=== PATIENT | female | born 2005 | race Caucasian/White ===

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

== ENCOUNTER 2024-05-20 16:24 | Emergency (ER) | payer MEDICAID ==
--- NOTE | 2024-05-20 16:48 | ERPHSYRPT ---
- History of Present Illness Time Seen by Provider: 05/20/24 16:46 Source: patient Exam Limitations: no limitations Physician History: For about 3 days patient's had generalized bodyaches and a sore throat. She had temperature 99.1 here but she taken Tylenol earlier. She denies having a fever. She does not have any chills. Basically sore throat and bodyaches are all she has. She has not done any testing. She does not have a rash. She has no respiratory symptoms at this time. She does not have any nausea vomiting or abdominal symptoms. Nothing makes symptoms better or worse. Allergies/Adverse Reactions: No Known Drug Allergies Allergy (Unverified 05/20/24 16:45) - Review of Systems Constitutional: No Symptoms Eyes: No Symptoms Ears, Nose, & Throat: Throat Pain Respiratory: No Symptoms Cardiac: No Symptoms Abdominal/Gastrointestinal: No Symptoms Genitourinary Symptoms: No Symptoms Musculoskeletal: No Symptoms Skin: No Symptoms - Past Medical History Pertinent Past Medical History: No Neurological History: No Pertinent History ENT History: No Pertinent History Cardiac History: No Pertinent History Respiratory History: No Pertinent History Endocrine Medical History: No Pertinent History Musculoskeletal History: No Pertinent History GI Medical History: No Pertinent History History: No Pertinent History Psycho-Social History: No Pertinent History Female Reproductive Disorders: No Pertinent History - Past Surgical History Past Surgical History: No Neuro Surgical History: No Pertinent History Cardiac: No Pertinent History Respiratory: No Pertinent History Gastrointestinal: No Pertinent History Musculoskeletal: No Pertinent History - Social History Smoking Status: Never smoker Drug Use: none - Nursing Vital Signs Nursing Vital Signs: Initial Vital Signs Temperature 99.1 F 05/20/24 16:39 Pulse Rate 118 H 05/20/24 16:39 Respiratory Rate 17 05/20/24 16:39 Blood Pressure 142/91 05/20/24 16:39 O2 Sat by Pulse Oximetry 99 05/20/24 16:39 Pain Scale Pain Intensity [Generalized] 5 Pain Intensity 5 - Physical Exam General Appearance: no apparent distress Eye Exam: bilateral eye: normal inspection, PERRL, EOMI Ear Exam: bilateral ear: auricle normal, canal normal, TM normal Nasal Exam: normal inspection Throat Exam: tonsillar exudate (Mild exudate and some erythema. There is not any swelling or unilateral signs or symptoms since that would indicate a peritonsillar abscess.) Neck Exam: normal inspection, non-tender, supple Cardiovascular/Respiratory Exam: chest non-tender, normal breath sounds Neurologic Exam: alert, oriented x 3 Skin Exam: normal color Ordered Tests: Active Orders 24 hr Category Date Time Status IV Insertion STAT Care 05/20/24 16:42 Active CBC W DIFF Stat Lab 05/20/24 16:53 Completed MONO SCREEN Stat Lab 05/20/24 16:53 Completed Medication Summary Discontinued Medications Generic Name Dose Route Start Last Admin Trade Name Lori PRN Reason Stop Dose Admin Sodium Chloride 1,000 mls @ 999 mls/hr 05/20/24 17:06 05/20/24 17:09 Sodium Chloride 0.9% 1000 Ml IV 05/20/24 18:06 999 mls/hr .Q1H1M STA Administration Sodium Chloride Confirm 05/20/24 17:08 Sodium Chloride 0.9% 1000 Ml Administered 05/20/24 17:09 Dose 1,000 mls @ ud .ROUTE .STK-MED ONE Lab/Rad Data: Laboratory Result Diagrams 05/20/24 16:53 Laboratory Results 05/20/24 05/20/24 05/20/24 Range/Units 17:07 17:07 16:53 WBC (3.98-10.04) x10^3/uL RBC (3.93-5.22) x10^6/uL Hgb (11.2-15.7) g/dL Hct (34.1-44.9) % MCV (79.4-94.8) fL MCH (25.6-32.2) pg MCHC (32.2-35.5) g/dL RDW (11.7-14.4) % Plt Count (182-369) x10^3/uL MPV (9.4-12.3) fL Gran % (34.0-71.1) % Immature Gran % (Auto) (0.001-0.429) % Nucleat RBC Rel Count (0.00-0.2) % Eos # (Auto) (0.04-0.36) x10^3/uL Immature Gran # (Auto) (0.001-0.031) x10^3u/L Absolute Lymphs (auto) (1.18-3.74) x10^3/uL Absolute Monos (auto) (0.24-0.86) x10^3/uL Absolute Nucleated RBC (0.00-0.012) x10^3u/L Lymphocytes % (19.3-51.7) % Monocytes % (4.7-12.5) % Eosinophils % (0.7-5.8) % Basophils % (0.1-1.2) % Absolute Granulocytes (1.56-6.13) x10^3/uL Basophils # (0.01-0.08) x10^3/uL Monoscreen NEGATIVE (NEGATIVE) Influenza Type A Ag NEGATIVE (NEGATIVE) Influenza Type B Ag NEGATIVE (NEGATIVE) RSV (PCR) NEGATIVE (NEGATIVE) SARS-CoV-2 (PCR) NEGATIVE (NEGATIVE) Group A Strep Antibody DETECTED (NEGATIVE) 05/20/24 Range/Units 16:53 WBC 21.1 H (3.98-10.04) x10^3/uL RBC 4.99 (3.93-5.22) x10^6/uL Hgb 14.4 (11.2-15.7) g/dL Hct 44.0 (34.1-44.9) % MCV 88.2 (79.4-94.8) fL MCH 28.9 (25.6-32.2) pg MCHC 32.7 (32.2-35.5) g/dL RDW 12.4 (11.7-14.4) % Plt Count 218 (182-369) x10^3/uL MPV 10.9 (9.4-12.3) fL Gran % 82.2 H (34.0-71.1) % Immature Gran % (Auto) 0.6 H (0.001-0.429) % Nucleat RBC Rel Count 0.0 (0.00-0.2) % Eos # (Auto) 0.02 L (0.04-0.36) x10^3/uL Immature Gran # (Auto) 0.12 H (0.001-0.031) x10^3u/L Absolute Lymphs (auto) 1.73 (1.18-3.74) x10^3/uL Absolute Monos (auto) 1.84 H (0.24-0.86) x10^3/uL Absolute Nucleated RBC 0.00 (0.00-0.012) x10^3u/L Lymphocytes % 8.2 L (19.3-51.7) % Monocytes % 8.7 (4.7-12.5) % Eosinophils % 0.1 L (0.7-5.8) % Basophils % 0.2 (0.1-1.2) % Absolute Granulocytes 17.36 H (1.56-6.13) x10^3/uL Basophils # 0.05 (0.01-0.08) x10^3/uL Monoscreen (NEGATIVE) Influenza Type A Ag (NEGATIVE) Influenza Type B Ag (NEGATIVE) RSV (PCR) (NEGATIVE) SARS-CoV-2 (PCR) (NEGATIVE) Group A Strep Antibody (NEGATIVE) - Progress Progress Note: Patient was stable throughout stay. On the differential with strep, COVID, mono,. Her strep test was positive. The rest were negative. I am going to start her on Augmentin and discharged to home. She is to return if symptoms worsen 05/20/24 18:11 05/20/24 18:12 Medical Desision Making - Diagnostic Testing Diagnostic test were ordered, analyzed, and reviewed by me: Yes - Departure Departure Disposition: Home Clinical Impression: Strep pharyngitis Condition: Stable Critical Care Time: No Referrals: SUE KELLY MD [Primary Care Provider] - Follow up/PCP as directed Prescriptions: Amox Tr/Potass Clav. 875 mg [Augmentin 875-125 Tablet] 875 mg PO BID #14 tablet
[2024-05-20 16:55] LABS: Absolute Neutrophil Ct (ANC) 17.36 x10^3/uL (1.56-6.13); BASOPHIL % 0.2 % (0.1-1.2); Basophil (Absolute #) 0.05 x10^3/uL (0.01-0.08); Eosinophil % 0.1 % (0.7-5.8); Eosinophil (Absolute #) 0.02 x10^3/uL (0.04-0.36); Hemoglobin 14.4 g/dL (11.2-15.7); IMMATURE GRAN # 0.12 x10^3u/L (0.001-0.031); IMMATURE GRAN % 0.6 % (0.001-0.429); Lymphocyte (Absolute #) 1.73 x10^3/uL (1.18-3.74); Lymphocytes % 8.2 % (19.3-51.7); Mean Cell Volume 88.2 fL (79.4-94.8); Mean Corpuscular Hemoglobin 28.9 pg (25.6-32.2); Mean Corpuscular Hgb Concent. 32.7 g/dL (32.2-35.5); Mean Platelet Volume 10.9 fL (9.4-12.3); Monocyte (Absolute #) 1.84 x10^3/uL (0.24-0.86); Monocytes % 8.7 % (4.7-12.5); Neutrophil % 82.2 % (34.0-71.1); Platelet Count 218 x10^3/uL (182-369); Red Blood Count 4.99 x10^6/uL (3.93-5.22); Red Cell Distribution Width 12.4 % (11.7-14.4); White Blood Count 21.1 x10^3/uL (3.98-10.04)
[2024-05-20 17:03] VITALS: RESP 17; TEMP 99.1
[2024-05-20] MEDS ORDERED: Sodium Chloride 0.9% 1000 ML 1,000 ML ONE (17:08)
[2024-05-20] MEDS: Sodium Chloride 0.9% 1000 ML 1,000 ML IV STA (17:09)
[2024-05-20 17:48] LABS: INFLUENZA A NEGATIVE (NEGATIVE); INFLUENZA B NEGATIVE (NEGATIVE); RESPIRATORY SYNCTIAL VIRUS NEGATIVE (NEGATIVE); SARS-CoV-2 Xpert Express NEGATIVE (NEGATIVE)
[2024-05-20] MEDS: Augmentin 875-125 Tablet PO ONE (18:18)
[2024-05-20 18:19] VITALS: BP 123/87; PULSE 98; O2SAT 98
[2024-05-20] MEDS ORDERED: Augmentin 875-125 Tablet ONE (18:19)
== END 2024-05-20 18:27 | disposition home or self-care (01) ==
LOC: ED 16:24
DX: J02.0 Streptococcal pharyngitis (principal); M79.10 Myalgia, unspecified site; Z79.899 Other long term (current) drug therapy
CPT/HCPCS: 0241U; 36000; 36415; 85025; 86308; 87651; 99283; A9270-GY